=== PATIENT | female | born 1970 | race Caucasian/White ===

== ENCOUNTER 2019-06-16 17:12 | Emergency (ER) | payer OTHER ==
[~2019-06-16] VITALS: Ht 170.2 cm; Wt 57.1 kg
[~2019-06-16 17:12] MED LIST: DOXYCYCLINE 10100 MG PO; IBUPROFEN 400400 M2 PO; KEFLEX500 M1 PO; TYLENOL EXTRA500 MG PO; UNICOMPLEX M TA1 TA1 PO
[2019-06-16 17:39] LABS: ABSOLUTE BASOPHILS 0.1 thou/uL (0.0-0.2); ABSOLUTE EOSINOPHILS 0.2 thou/uL (0.0-0.7); ABSOLUTE LYMPHOCYTES 1.4 thou/uL (0.8-5.3); ABSOLUTE MONOCYTES 0.4 thou/uL (0.0-1.2); ABSOLUTE NEUTROPHILS 2.2 thou/uL (1.6-8.1); BASOPHILS 1.5 %; EOSINOPHILS 4.6 %; HEMATOCRIT 34.8 % (37.0-47.0); LYMPHOCYTES 34.3 %; MCH 30.7 pg (26.0-34.0); MCHC 34.4 g/dL (28.0-37.0); MCV 89.4 fL (80.0-100.0); MONOCYTES 8.4 %; MPV 7.3 fl. (7.2-11.1); NUCLEATED RBCS 0 /100WBC; PLATELET COUNT* 238 thou/uL (150-400); POLYS 51.2 %; RBC 3.89 mil/uL (4.20-5.00); RDW-CV 13.2 % (10.5-14.5); WBC 4.2 thou/uL (4.0-11.0)
[2019-06-16 17:51] LABS: CALCIUM 9.2 mg/dL (8.5-10.1); CREATININE 0.7 mg/dL (0.6-1.3); POTASSIUM 3.4 mmol/L (3.5-5.1)
[2019-06-16 17:53] LABS: INR 1.1; PROTIME 10.9 Seconds (9.20-11.50)
[2019-06-16 18:15] LABS: ALBUMIN 4.2 g/dL (3.4-5.0); CK-MB MASS 1.9 ng/mL (<0.5-3.6); MAGNESIUM 1.8 mg/dL (1.8-2.4); TOTAL BILIRUBIN 0.6 mg/dL (<0.1-1.0); TOTAL PROTEIN 7.1 g/dL (6.4-8.2)
[2019-06-16 18:20] VITALS: BP 98/53
--- NOTE | 2019-06-17 08:45 | EKG ---
[place] [address] ELECTROCARDIOGRAM REPORT Name: PREET ARNOLD Room: [facility]#: [id number] Admission: 06/16/19 Attend Phys: Discharge: 06/16/19 Date of : 72 Report #: [id number] THIS REPORT FOR: //name// 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1970 Requested By: Bhupinder Borja Order Number: [id number] MD: Federico Emery Measurements Intervals [place] Rate: 57 P: 73 TX: 207 QRS: 86 QRSD: 115 T: 42 QT: 430 QTc: 419 Interpretive Statements Sinus rhythm Borderline prolonged [place] interval Incomplete right bundle branch block Compared to ECG 03/18/2019 20:16:52 Incomplete right bundle-branch block now present Electronically Signed On 06-17-2019 8:45:11 CDT by Federico Emery [email or web address] <ELECTRONICALLY SIGNED> By: Federico Emery MD, [facility] 06/17/19 0845 18 18 Federico Emery MD, FACC /EPI
== END 2019-06-16 18:20 | disposition home or self-care (01) ==
LOC: M.ERS 17:12
PROVIDERS: Family Medicine
DX: R07.89 Other chest pain (principal)